=== PATIENT | female | born 1995 | race African-American/Black ===

== ENCOUNTER 2016-10-19 13:27 | Outpatient (CLI) | payer OTHER ==
[2016-10-19 15:20] LABS: Appearance,Urine Clear (Clear); Bacteria,Urine Rare /hpf; Bilirubin,Urine Negative (Negative); Glucose,Urine (UA) Negative (Negative); Ketones,Urine Negative (Negative); Leukocyte Esterase,Urine Small (Negative); Nitrite,Urine Negative (Negative); PH, Urine 6.5 (5.0-8.0); Particle Count 667; Protein,Urine Negative (Negative); RBC,Urine <1 /hpf (0-5); Specific Gravity,Urine 1.005 (1.001-1.035); Squamous Epithelial Cell,Urine <1 /hpf (0-4); UA Billing (MACRO vs. MICRO) MICRO; Urobilinogen,Urine <2.0 mg/dL (<2.0); WBC,Urine 2 /hpf (0-5)
[2016-10-19 15:35] LABS: Anisocytosis Slight; Basophils % (A) 0 %; CH 26.4; CHCM 31.2; Eosinophils % (A) 1 %; HCT 32.1 % (34.0-46.0); HDW 2.79; HGB 9.8 gm/dL (11.4-16.0); Hypochromasia Slight; Luc % (Auto) 3; Lymphocytes # (A) 1.4 k/uL (1.0-4.8); Lymphocytes % (A) 34 %; MCHC 30.6 g/dL (31.0-37.0); MCV 85.1 fL (80.0-100.0); Mean Platelet Volume 10.8; Monocytes # (A) 0.2 k/uL (0-1.0); Monocytes % (A) 5 %; Neutrophils # (A) 2.4 k/uL (1.3-7.7); Neutrophils % (A) 57 %; RBC 3.77 m/uL (3.80-5.40); RDW 16.5 % (11.5-15.5); WBC 4.2 k/uL (3.8-10.6); WBC (Perox) 4.42
[2016-10-19 15:42] VITALS: RESP 16
[2016-10-19 15:44] LABS: Glucose 86 mg/dL (74-99)
[2016-10-19 16:15] LABS: Hepatitis B Surface Ag Index 0.06
--- NOTE | 2016-10-19 17:20 | US ---
EXAMINATION TYPE: US OB >= 14 wk fetus DATE OF EXAM: 10/19/2016 3:48 PM COMPARISON: None CLINICAL HISTORY: No careNo care, unknown dates TECHNIQUE: Transabdominal (TA) GESTATIONAL AGE / DATING Physician Established: Not established Dates by LMP: Unknown Dates by First Scan: No prior Dates by Current Scan: (36 weeks/0 days) EDC: 11/16/2016 SURVEY IUP: Single PLACENTA: Fundal PREVIA: No Previa KRISTINE: 12.6 cm Normal CERVICAL LENGTH (transabdominal: norm > 3.0cm): 3.2 cm BIOMETRY PRESENTATION: Vertex BPD: 9.1 cm 37 weeks / 0 days HC: 32.5 cm 36 weeks / 5 days AC: 32.0 cm 35 weeks / 6 days FL: 7.0 cm 36 weeks / 1 days ESTIMATED WEIGHT IN GRAMS: 2860 grams ESTIMATED WEIGHT IN LBS/OZS: 6 lbs. 5 oz. HC/AC: 1.02 Normal FL/AC: 22 Normal HEART RATE: 161 bpm RHYTHM: Normal IMPRESSION: Single, viable IUP/ Highly calcified placenta, otherwise no other abnormality seen at this time Results given to L&D at time of exam
[2016-10-19 17:35] VITALS: BP 118/52; PULSE 99; TEMP 98.2
[2016-10-21 13:25] LABS: HIV-1/HIV-2 Ab/Ag Confrim NONREAC (NON REAC)
== END 2016-10-19 17:36 | disposition home or self-care (01) ==
LOC: FBPOP 13:27
PROVIDERS: ATTEND Obstetrics & Gynecology
DX: O99.89 Other specified diseases and conditions complicating pregnancy, childbirth and the puerperium (principal); Z3A.36 36 weeks gestation of pregnancy; F14.90 Cocaine use, unspecified, uncomplicated; F11.90 Opioid use, unspecified, uncomplicated
CPT/HCPCS: 59025; 86900; 86901; 86762; 82947; 85025; 86850; 87340; 81001; 87389; 86780; 80306; 76805; G0463; 99213